=== PATIENT | male | born 1995 | race Caucasian/White ===

== ENCOUNTER 2018-11-10 11:52 | Emergency (ER) | payer OTHER ==
[~2018-11-10] VITALS: Ht 182.9 cm; Wt 72.7 kg
[2018-11-10 11:54] VITALS: TEMP 97.1
[2018-11-10 13:12] LABS: BASO # 0.1 (0.0-0.2); BASO % 0.4 % (0.0-2.0); EOS % 0.2 % (0-4.0); GRAN # 12.4 (1.4-6.5); GRAN % 89.4 % (42.2-75.2); LYMPH # 0.4 (1.2-3.4); LYMPH % 2.7 % (20.0-51.0); MEAN CELL VOLUME 93 fl (80.0-100.0); MEAN CORPUSCULAR HGB CONC 35 g/dl (33.0-37.0); MEAN PLATELET VOLUME 10.6 fl (7.4-10.4); MONO # 0.9 (0.1-0.6); MONO % 6.7 % (1.7-9.3); PLATELET COUNT 214 K/mm3 (130-400); RED BLOOD COUNT 5.89 M/mm3 (4.20-5.60); REDCELL DISTRIBUTION WIDTH-CV 12.7 % (11.5-14.5)
[2018-11-10 13:17] LABS: ALBUMIN 5.1 gm/dL (3.5-5.0); CALCIUM 9.6 mg/dL (8.4-10.2); CREATININE, serum 1.47 mg/dL (0.66-1.25); POTASSIUM 5.1 mmol/L (3.4-5.0); TOTAL PROTEIN 8.7 gm/dL (6.4-8.2)
[2018-11-10 13:18] LABS: HEMATOCRIT 54.6 % (42.0-52.0); HEMOGLOBIN 18.9 g/dl (13.5-18.0); INR 1.1 (0.8-3.0); MEAN CORPUSCULAR HEMOGLOBIN 32 pg (27.0-31.0); PROTHROMBIN TIME 12.3 SECONDS (9.7-12.8)
[2018-11-10 13:21] LABS: PARTIAL THROMBOPLASTIN TIME 28.2 SECONDS (26.0-37.0)
[2018-11-10 15:34] VITALS: BP 114/72; PULSE 68
== END 2018-11-10 15:45 | disposition short-term general hospital (02) ==
LOC: COL.ER 11:52
PROVIDERS: Emergency Medicine
DX: J98.2 Interstitial emphysema (principal); R11.10 Vomiting, unspecified; K21.9 Gastro-esophageal reflux disease without esophagitis
CPT/HCPCS: C9113; J1956; J2405; J3010; J7030; Q9967